=== PATIENT | female | born 1975 | race Caucasian/White ===

== ENCOUNTER 2017-02-17 18:59 | Emergency (ER) | payer OTHER ==
[2017-02-17 21:28] VITALS: BP 157/96
== END 2017-02-17 21:28 | disposition home or self-care (01) ==
LOC: ED 18:59
DX: J02.0 Streptococcal pharyngitis (principal); B95.5 Unspecified streptococcus as the cause of diseases classified elsewhere; E66.9 Obesity, unspecified
CPT/HCPCS: J0696; J1100

== ENCOUNTER 2020-03-05 17:28 | Inpatient (IN) | payer OTHER ==
[~2020-03-05] VITALS: Ht 157.5 cm; Wt 132.6 kg
[2020-03-05 17:53] VITALS: Ht 157.5 cm; Wt 132.6 kg
[2020-03-05 18:43] LABS: BASOPHIL % 0.6 % (0-2); PLATELET COUNT 302 x10^3mcL (130-400); RED CELL DISTRIBUTION WIDTH 17.7 % (11.5-14.5)
[2020-03-05 19:16] LABS: CALCIUM 9.5 mg/dL (8.5-10.1); CARBON DIOXIDE 21.6 mmol/L (21-32); CHLORIDE SERUM 97 mmol/L (98-107); CREATININE SERUM 0.9 mg/dL (0.6-1.0); GFR1 > 60 mL/min; GLUCOSE SERUM 394 mg/dL (74-106); SODIUM SERUM 131 mmol/L (136-145)
[2020-03-05 19:21] LABS: ALKALINE PHOSPHATASE 139 U/L (46-116); ALT/SGPT 45 U/L (14-59); AST/SGOT 24 U/L (15-37); BILIRUBIN TOTAL 0.25 mg/dL (0.20-1.00); TOTAL PROTEIN, SERUM 7.1 g/dL (6.4-8.2)
[2020-03-05 19:27] LABS: ALBUMIN 3.1 g/dL (3.4-5.0)
[2020-03-05 23:03] LABS: HDL CHOLESTEROL 37 mg/dL (40-60); LIPASE 87 IU/L (73-393); MAGNESIUM 1.6 mg/dL (1.8-2.4); PHOSPHOROUS 3.3 mg/dL (2.5-4.9)
[2020-03-05 23:10] LABS: AMYLASE 21 U/L (25-115); CHOLESTEROL 230 mg/dL (<200); CHOLESTEROL/HDL RATIO 6.2; TRIGLYCERIDES 487 mg/dL (<150)
[2020-03-06 00:53] VITALS: BP 147/100
[2020-03-06 03:17] LABS: microscopic required? NO
[2020-03-06 03:18] LABS: BASOPHIL % 0.3 % (0-2); PLATELET COUNT 254 x10^3mcL (130-400); RED CELL DISTRIBUTION WIDTH 17.8 % (11.5-14.5)
[2020-03-06 03:21] LABS: urine erythrocyte NEGATIVE (NEGATIVE)
[2020-03-06 03:39] LABS: CALCIUM 8.6 mg/dL (8.5-10.1); CARBON DIOXIDE 23.5 mmol/L (21-32); CHLORIDE SERUM 98 mmol/L (98-107); CREATININE SERUM 0.8 mg/dL (0.6-1.0); GFR1 > 60 mL/min; GLUCOSE SERUM 295 mg/dL (74-106); MAGNESIUM 1.6 mg/dL (1.8-2.4); PHOSPHOROUS 3.2 mg/dL (2.5-4.9); POTASSIUM SERUM 3.9 mmol/L (3.5-5.1); SODIUM SERUM 131 mmol/L (136-145)
[2020-03-06 05:27] VITALS: BP 147/71
[2020-03-06 07:57] VITALS: BP 148/94
[2020-03-06 12:22] VITALS: BP 145/84
[2020-03-06 16:27] VITALS: BP 125/72
[2020-03-06 20:10] VITALS: BP 144/77
[2020-03-07 03:59] LABS: BASOPHIL % 0.4 % (0-2); PLATELET COUNT 255 x10^3mcL (130-400); RED CELL DISTRIBUTION WIDTH 17.7 % (11.5-14.5)
[2020-03-07 04:44] LABS: CALCIUM 8.7 mg/dL (8.5-10.1); CHLORIDE SERUM 99 mmol/L (98-107); GLUCOSE SERUM 190 mg/dL (74-106); PHOSPHOROUS 2.9 mg/dL (2.5-4.9); POTASSIUM SERUM 3.6 mmol/L (3.5-5.1); SODIUM SERUM 131 mmol/L (136-145)
[2020-03-07 04:59] VITALS: BP 132/65
[2020-03-07 08:14] VITALS: BP 147/78
[2020-03-07 08:16] LABS: CREATININE SERUM 0.8 mg/dL (0.6-1.0); GFR1 > 60 mL/min
[2020-03-07 08:32] LABS: MAGNESIUM 1.6 mg/dL (1.8-2.4)
[2020-03-07 12:49] VITALS: BP 111/53
[2020-03-07 16:44] VITALS: BP 118/62
[2020-03-07 20:04] VITALS: BP 134/74
[2020-03-08 04:06] LABS: BASOPHIL % 0.3 % (0-2); PLATELET COUNT 259 x10^3mcL (130-400)
[2020-03-08 04:07] LABS: RED CELL DISTRIBUTION WIDTH 17.8 % (11.5-14.5)
[2020-03-08 04:31] LABS: CALCIUM 8.5 mg/dL (8.5-10.1); CARBON DIOXIDE 21.4 mmol/L (21-32); CHLORIDE SERUM 101 mmol/L (98-107); CREATININE SERUM 0.6 mg/dL (0.6-1.0); GFR1 > 60 mL/min; GLUCOSE SERUM 200 mg/dL (74-106); MAGNESIUM 1.9 mg/dL (1.8-2.4); POTASSIUM SERUM 3.8 mmol/L (3.5-5.1); SODIUM SERUM 134 mmol/L (136-145)
[2020-03-08 05:31] VITALS: BP 123/72
[2020-03-08 16:55] VITALS: BP 157/74
[2020-03-08 21:18] VITALS: BP 136/63
[2020-03-09 05:11] VITALS: BP 113/52
[2020-03-09 09:02] VITALS: BP 129/56
[2020-03-09 17:20] VITALS: BP 156/80
[2020-03-09 20:54] VITALS: BP 142/71
[2020-03-10 05:05] VITALS: BP 117/60
[2020-03-10 07:59] VITALS: BP 137/69
[2020-03-10] MEDS ORDERED: ELIQUIS5 MG PO (09:04)
[2020-03-10] MEDS ORDERED: BG FS (09:05)
[2020-03-10] MEDS ORDERED: LANTI SQ (09:05)
[2020-03-10] MEDS ORDERED: ZES10 PO (09:05)
[2020-03-10] MEDS ORDERED: ACCU-CHEK1 EAC2 MC (09:06)
[2020-03-10 11:50] VITALS: BP 137/69
[2020-03-10] MEDS ORDERED: GLUCOPHAGE500 MG PO (12:29)
== END 2020-03-10 15:15 | disposition home or self-care (01) | DRG 299 ==
LOC: ED 17:28 → EDBEDREQ 22:37 → DU 22:39 → EDBEDREQ 22:39 → DU 23:55
PROVIDERS: Emergency Medicine; ADMIT Family Medicine; ATTEND Family Medicine
DX: I82.412 Acute embolism and thrombosis of left femoral vein (principal); I26.09 Other pulmonary embolism with acute cor pulmonale; E87.2 Acidosis; E87.1 Hypo-osmolality and hyponatremia; E46 Unspecified protein-calorie malnutrition; E66.2 Morbid (severe) obesity with alveolar hypoventilation; Z68.43 Body mass index [BMI] 50.0-59.9, adult; E11.9 Type 2 diabetes mellitus without complications; E78.5 Hyperlipidemia, unspecified; E83.42 Hypomagnesemia; E86.0 Dehydration; Z20.828 Contact with and (suspected) exposure to other viral communicable diseases; Z98.891 History of uterine scar from previous surgery; Z82.49 Family history of ischemic heart disease and other diseases of the circulatory system; Z80.9 Family history of malignant neoplasm, unspecified; Z63.5 Disruption of family by separation and divorce; I82.4Y2 Acute embolism and thrombosis of unspecified deep veins of left proximal lower extremity; I82.432 Acute embolism and thrombosis of left popliteal vein; Z79.4 Long term (current) use of insulin
CPT/HCPCS: 82962; 85378; G0378; J1200; J1644; J1650; J1815; J1940; J3475; J7030; Q9967